=== PATIENT | male | born 1940 | race Caucasian/White ===

== ENCOUNTER 2024-10-20 20:23 | Inpatient (IN) | payer MEDICARE, OTHER, SELFPAY ==
[2024-10-20] VITALS (11 sets, daily range): BP systolic 113–162; BP diastolic 73–113; PULSE 88–100; RESP 24–26; TEMP 36.8; O2SAT 93–96; BMI 20.7
--- NOTE | 2024-10-20 20:40 | ED.MALEGU ---
HPI - Male Genitourinary General Chief complaint: Urogenital-Male Stated complaint: ruptured urethra; transfer from [facility] Time Seen by Provider: 10/20/24 20:27 Source: patient and EMS History of Present Illness HPI Narrative: 84-year-old male with past medical history of CAD CHF comes into the ED as transfer from [place] for anterior urethral traumatic rupture and bilateral multifocal pneumonia. Patient initially presented to outside hospital for persistent shortness of breath and generalized malaise with decreased urinary output. While he was there he was found to have urinary retention it was informed to me that they attempted to place a March in caused a traumatic rupture transferred here for urological intervention. Patient was found to have pneumonia there was given antibiotics but given the fact that patient required urological intervention was transferred here. Patient not complaining of any other symptoms, however patient is requiring 2 L supplemental oxygen without any respiratory distress or dyspnea Related Data Previous Rx's Medication Instructions Recorded sildenafil 50 mg tablet 50 mg PO DAILY PRN sexual activity 08/20/24 #20 tabs tamsulosin 0.4 mg capsule 0.4 mg PO DAILY #90 caps 08/20/24 Allergies Allergy/AdvReac Type Severity Reaction Status Date / Time No Known Drug Allergies Allergy Verified 10/20/24 20:27 Review of Systems Review of Systems Narrative: General: Denies fever, chills, weight loss HEENT: Denies headache, eye drainage, eye irritation, head trauma, sore throat, voice change Cardiovascular: Denies any chest pain, palpitations, tachycardia Respiratory: Positive shortness of breath, denies cough, wheeze, stridor GI/: Traumatic injury to urethra Denies any abdominal pain, nausea, vomiting, diarrhea, bright red blood per rectum, melanotic stools, urinary frequency, urinary retention, dysuria, hematuria MSK: Denies any joint pain, muscle pains, swelling Skin: Denies any rashes, lesions, discoloration Neuro: Denies any headache, lightheadedness, dizziness, fainting, weakness Psych: Denies SI/HI Patient History Medical History (Updated 10/20/24 @ 20:50 by Ludwin Schreiber DO) Incomplete bladder emptying Family history of prostate cancer Hypertension Congestive heart failure Arthritis Family history of prostate cancer Urinary calculi Male erectile disorder BPH loc w urin obs/LUTS Surgical History H/O vasectomy H/O prostate biopsy Total knee replacement status H/O transurethral resection of prostate History of hernia surgery Social History marital status: number of children: 3 Smoking Status: Former smoker Smoking Status: Former smoker Exam Narrative Exam Narrative: General: Cooperative, well-developed, not in acute distress HEENT: Normocephalic, atraumatic, PERRLA, normal sclera, eyelids normal Neck: Active full range of motion, atraumatic Chest: Normal to inspection, negative crepitus, no overlying erythema ecchymosis Respiratory: Onto L nasal cannula, Normal respiratory effort, not in acute respiratory distress, clear to auscultation bilaterally negative cough, wheeze, tachypnea, rhonchi, rales Cardiology: Regular rate rhythm negative gallop, murmur, rubs GI/: No tenderness to palpation, soft, non rigid, normal to inspection, exam deferred MSK: Full active range of motion in all 4 extremities, atraumatic, no tenderness to palpation of any bony prominences Skin: No rashes or lesions noted Neuro: Alert awake oriented x3, moves all 4 extremities spontaneously, cranial nerves intact, able to answer all questions appropriately follows commands appropriately Psych: Cooperative, negative suicidal or homicidal ideations Initial Vital Signs Initial Vital Signs: Vital Signs Temperature 98.2 F 10/20/24 20:27 Pulse Rate 93 H 10/20/24 20:27 Respiratory Rate 24 10/20/24 20:27 Blood Pressure 158/113 H 10/20/24 20:27 Pulse Oximetry 94 10/20/24 20:27 Oxygen Delivery Method Nasal Cannula 10/20/24 20:27 Oxygen Flow Rate 2 10/20/24 20:27 Course Orders Ordered: ED Orders 10/20/24 20:42 CBC Auto Diff [Complete Blood Count AUTO DIFF] Stat CMP [Comprehensive Metabolic Panel] Stat Lipase Stat MAG [Magnesium] Stat PT [Prothrombin Time INR] Stat PTT Partial Thromboplastin Matthew Stat Type and Screen Stat 10/20/24 21:30 UA dip [Urinalysis Screen (Dip Only)] Stat Urine Microscopic Stat Discontinued Medications Lidocaine HCl (Lidocaine 2% (Glydo) 6 Ml Gel) 6 ml TOP NOW ONE Stop: 10/20/24 20:49 Last Admin: 10/20/24 20:52 Dose: 6 ml Documented By: SB Vital Signs Vital signs: Vital Signs - 8 hr 10/20/24 20:27 Temperature 98.2 F Pulse Rate 93 H Respiratory Rate 24 Blood Pressure 158/113 H Pulse Oximetry 94 Oxygen Delivery Method Nasal Cannula Oxygen Flow Rate 2 MDM - Male Genitourinary Differential Diagnosis Differential diagnosis: Likely other (Urethral rupture, pneumonia, electrolyte abnormality) Lab Data 10/20/24 20:42 10/20/24 20:42 Labs: Lab Results 10/20/24 10/20/24 Range/Units 20:42 21:30 WBC 9.9 (4.5-11.0) X10^3/uL RBC 4.78 (4.5-5.9) X10^6/uL Hgb 14.1 (13.5-17.5) g/dL Hct 41.5 (41-53) % MCV 86.8 (80-100) fL MCH 29.5 (26-34) PG MCHC 34.0 (30-36) % RDW 13.5 (11.6-14.8) % Plt Count 354 (150-400) X10^3/uL Neut % (Auto) 70.7 (50-75) % Lymph % (Auto) 13.2 L (25-40) % [place] % (Auto) 11.1 (3-14) % Eos % (Auto) 4.4 H (2-4) % Baso % (Auto) 0.6 (0-2) % Neut # (Auto) 7000 (7074-7642) /uL Lymph # (Auto) 1300 (2370-4371) /uL [place] # (Auto) 1100 H (0-900) /uL Eos # (Auto) 400 (0-450) /uL Baso # (Auto) 100 (0-100) /uL PT 13.8 H (9.4-12.5) SECONDS INR 1.2 (0.9-1.3) APTT 32 (25.1-36.5) SECONDS Sodium 136 L (137-145) mmol/L Potassium 4.2 (3.4-5.1) mmol/L Chloride 104 (98-107) mmol/L Carbon Dioxide 23 (22-32) mmol/L BUN 15 (9-20) mg/dL Creatinine 0.87 (0.66-1.25) mg/dL Estimated GFR > 60 (>60) mL/min BUN/Creatinine Ratio 17.2 (6-22) Glucose 109 H (70-99) mg/dL Calcium 8.4 (8.4-10.2) mg/dL Magnesium 2.0 (1.6-2.3) mg/dL Total Bilirubin 0.9 (0.2-1.3) mg/dL AST 33 (17-59) IU/L ALT 24 (<50) IU/L Alkaline Phosphatase 67 (38-126) U/L Total Protein 6.6 (6.3-8.2) g/dL Albumin 3.6 (3.5-5.0) g/dL Globulin 3.0 (1.7-4.1) g/dL Albumin/Globulin Ratio 1.2 (1.0-2.8) Lipase 181 (23-300) U/L Urine Color Yellow Urine Appearance Clear Urine pH 6.5 (4.5-8.0) Ur Specific [place] <=1.005 (1.000-1.035) Urine Protein Negative (Negative) Urine Glucose (UA) Negative (Negative) g/dL Urine Ketones Negative (NEGATIVE) Urine Occult Blood 3+ H (Negative) Urine Nitrate Negative (Negative) Urine Bilirubin Negative (NEGATIVE) Urine Urobilinogen 0.2 (0.2) E.U./dL Ur Leukocyte Esterase Negative (NEGATIVE) Urine RBC 5-10/hpf H (0-5/HPF) Urine WBC 0-1/hpf (0-5/HPF) Ur Squamous Epith Cells None seen (0-5/HPF) Ur Transition Epith Cell 0-1/hpf (0-5/HPF) Ur Renal Epithelial Cell 1-5/hpf H (0-1/HPF) Urine Bacteria None seen (None) Ur Culture Indicated? Cult not indicated Vol Urine Centrifuged 10ml (spun) Blood Type A Positive Antibody Screen Negative MDM Narrative Medical decision making narrative: 84-year-old male with past medical history of CABG, CHF, hypertension presents from transfer from [facility] for known urethral traumatic injury. From outside hospital patient initially presented stating decreased urinary output today with generalized malaise. According to the patient they attempted to place a March for his urinary retention and had blood and stated that they caused traumatic injury that require transfer. In addition to this He had been seen multiple times at the outside hospital for shortness of breath cough was being treated for pneumonia versus CHF, patient was given diuresis last Saturday but stopped due to the inability to urinate patient was found to have extra have on CT urethrogram and transferred here for urological intervention, patient does have multifocal pneumonia on chest x-ray therefore will require admission to the hospital pending intervention of Urology Review of records show that patient did have outside hospital urethral cystogram that showed traumatic injury to the proximal anterior urethra with extra half of contrast into the penile soft tissue and venous structure, Outside hospital also showing chest x-ray with patchy airspace throughout the lungs consistent with pneumonia 2039: Dr. Reyes of Urology at bedside to perform procedure 2199: Successful placement of March catheter by Dr. Reyes, states they will follow up with him in the morning The patient's management plan was discussed Dr. De Los Santos, who agrees to admit the patient to their service and assumes care of this patient at this time. Full admission orders will be placed by the primary team. Discharge Plan Departure Patient Disposition: Admitted As Inpatient Clinical Impression: Pneumonia, Traumatic rupture of male urethra Prescriptions: No Action sildenafil 50 mg tablet 50 mg PO DAILY PRN (Reason: sexual activity) Qty: 20 3RF Rx Instructions: administer 30 minutes to 4 hours before activity. take 1 to 2 tabs as needed. tamsulosin 0.4 mg capsule 0.4 mg PO DAILY Qty: 90 3RF Referrals: Gato Franz MD [Primary Care Provider] -
[2024-10-20] MEDS: LIDOCAINE 2% (GLYDO) 6 ML GEL TOP (20:52)
[2024-10-20 21:27] LABS: Add Manual Diff / Slide Review NO; Basophils Absolute Auto 100 /uL (0-100); Basophils Percent Auto 0.6 % (0-2); Eosinophils Absolute Auto 400 /uL (0-450); Eosinophils Percent Auto 4.4 % (2-4); Hematocrit 41.5 % (41-53); Hemoglobin 14.1 g/dL (13.5-17.5); INR 1.2 (0.9-1.3); Lymphocytes Absolute Auto 1300 /uL (1100-4500); Lymphocytes Percent Auto 13.2 % (25-40); Mean Corpuscular Hemoglobin 29.5 PG (26-34); Mean Corpuscular Volume 86.8 fL (80-100); Monocytes Absolute Auto 1100 /uL (0-900); Monocytes Percent Auto 11.1 % (3-14); Neutrophils Absolute Auto 7000 /uL (1500-7000); Neutrophils Percent Auto 70.7 % (50-75); Platelet Count 354 X10^3/uL (150-400); Prothrombin Time 13.8 SECONDS (9.4-12.5); Red Blood Cell Count 4.78 X10^6/uL (4.5-5.9); Red Cell Distribution Width 13.5 % (11.6-14.8); White Blood Cell Count 9.9 X10^3/uL (4.5-11.0)
--- NOTE | 2024-10-20 21:27 | PM.PROC.IH ---
Procedures Date/Time Date of procedure: 10/20/24 Time of procedure: 21:28 General Procedure description: Flexible cystoscopy with over the wire catheter placement: Informed consent given: Yes Consent signed: Yes Procedure Notes: Flexible cystoscopy with over the wire catheter placement note: Procedure performed: Flexible cystoscopy Surgeon: Bennett Reyes MD Anesthetic: 2% viscous lidocaine per urethra. Prep: Hibiclens prep Preoperative diagnosis: Urethral false passage, history of traumatic catheterization, inability to pass catheter, patient unable to void Postoperative diagnosis: Same plus posterior false passage bulbar urethra some regrowth of prostate tissue. Complications: None Procedure in detail: After informed consent was obtained, the patient was identified and and was on his gurney in emergency room 2 Patient was then placed in a modified supine position on the table due to his congestive heart failure and shortness of breath. He was prepped with a sterilizing prep (Hibiclens) and draped in sterile fashion for flexible cystoscopy. 2% viscous lidocaine was instilled in the urethra and time allowed for the block set up. Flexible cystoscope was inserted in flexible cystoscopy performed including a retroflex maneuver. With the cystoscope in place an Amplatz ultra stiff guidewire was then passed through the scope and coiled within the bladder. The scope was then backed out leaving the wire in place. A Councill tip catheter 18 Maltese was then passed over the wire and into the bladder once there the balloon was filled with 10 cc of sterile water. The wire was then removed the catheter left in place and placed to gravity drainage there were no complications in the patient tolerated the procedure well the result was clear yellow urine in the 6-900 cc range. Disposition: The patient we will go onto the care of the hospitalist to deal with his cardiopulmonary issues. Findings: Urethral meatus was bloody there was blood on the the penis which was cleansed. The urethra was normal to the bulbar urethra where there was a posterior false passage that appeared relatively shallow. Prostate appeared resected with some small amount of regrowth. The bladder exhibited moderate trabeculation ureteral orifices were not observed there were no masses or other abnormalities within the bladder. The 18 Maltese Councill tip catheter was left in place with 10 cc of sterile water in the balloon. Li color urine was then drained and again a quantity somewhere between 600 and 900 cc. Impression: Traumatic catheterization posterior false passage catheter is in place and should remain so. Plan: Given the trauma to the urethra the catheter should likely remain in place 7-10 days I will leave this determination Dr. Platt who will likely see the patient tomorrow patient will go onto the care of the hospitalist to deal with his cardiopulmonary issues. 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
[2024-10-20 21:30] LABS: PTT Partial Thromboplastin Tim 32 SECONDS (25.1-36.5)
[2024-10-20 21:37] LABS: Alanine Aminotransferase 24 IU/L (<50); Albumin 3.6 g/dL (3.5-5.0); Albumin Globulin Ratio 1.2 (1.0-2.8); Alkaline Phosphatase 67 U/L (38-126); Aspartate Aminotransferase 33 IU/L (17-59); BUN Creatinine Ratio 17.2 (6-22); Bilirubin Total 0.9 mg/dL (0.2-1.3); Blood Urea Nitrogen 15 mg/dL (9-20); Calcium 8.4 mg/dL (8.4-10.2); Carbon Dioxide 23 mmol/L (22-32); Chloride 104 mmol/L (98-107); Estimated Glomerular Filt Rate > 60 mL/min (>60); Glucose 109 mg/dL (70-99); HEMOLYSIS < 15 (0-50); Lipase 181 U/L (23-300); Potassium 4.2 mmol/L (3.4-5.1); Sodium 136 mmol/L (137-145); Total Protein 6.6 g/dL (6.3-8.2)
--- NOTE | 2024-10-20 21:39 | PM.CN.IH.1 ---
History of Present Illness Consult details Date Patient Seen: 10/20/24 Chief complaint: ruptured urethra; transfer from [facility] Reason for consult: Traumatic catheterization, urethral trauma, unable to void, Requesting provider: Ludwin Navarro Narrative: This 84-year-old male presented to the [facility] with complaints of shortness of breath and was found to be in cardiopulmonary distress and according to reports I had it was felt that he needed diuresis an attempt was made to pass a March catheter which were ultra salted in non passage of the catheter urethral trauma and a false passage documented by retrograde urethrogam. They did not have Urology there and patient needs diuresis and cardiopulmonary care therefore he was transferred here. Patient is a patient of Dr. Platt. Patient is here for catheterization and care of his cardiopulmonary issues. Patient does have a history of Transurethral resection of the prostate in the distant past I believe 2014 the patient reports that he had perhaps some slowing of his stream had been restarted on tamsulosin and was doing well. Patient has by his report no history of stricture or other urethral abnormality. Patient underwent cystoscopy with over the wire catheter placement this is dictated under separate cover. Meds Home Medications and Allergies Home Medications Medication Instructions Recorded Confirmed Type sildenafil 50 mg tablet 50 mg PO DAILY PRN sexual activity 08/20/24 08/20/24 Rx #20 tabs tamsulosin 0.4 mg capsule 0.4 mg PO DAILY #90 caps 08/20/24 08/20/24 Rx Allergies Allergy/AdvReac Type Severity Reaction Status Date / Time No Known Drug Allergies Allergy Verified 10/20/24 20:27 Exam Vital Signs (past 8 hours): - 10/20/24 20:27 Temperature 98.2 F Pulse Rate 93 H Respiratory Rate 24 Blood Pressure 158/113 H Pulse Oximetry 94 Oxygen Delivery Method Nasal Cannula Oxygen Flow Rate 2 Oxygen Delivery Method Nasal Cannula Oxygen Flow Rate 2 Objective Labs 10/20/24 20:42 10/20/24 20:42 Labs: Laboratory Results - last 24 hr 10/20/24 20:42 WBC 9.9 RBC 4.78 Hgb 14.1 Hct 41.5 MCV 86.8 MCH 29.5 MCHC 34.0 RDW 13.5 Plt Count 354 Neut % (Auto) 70.7 Lymph % (Auto) 13.2 L Gaines % (Auto) 11.1 Eos % (Auto) 4.4 H Baso % (Auto) 0.6 Neut # (Auto) 7000 Lymph # (Auto) 1300 Gaines # (Auto) 1100 H Eos # (Auto) 400 Baso # (Auto) 100 PT 13.8 H INR 1.2 APTT 32 Sodium 136 L Potassium 4.2 Chloride 104 Carbon Dioxide 23 BUN 15 Creatinine 0.87 Estimated GFR > 60 BUN/Creatinine Ratio 17.2 Glucose 109 H Calcium 8.4 Magnesium 2.0 Total Bilirubin 0.9 AST 33 ALT 24 Alkaline Phosphatase 67 Total Protein 6.6 Albumin 3.6 Globulin 3.0 Albumin/Globulin Ratio 1.2 Lipase 181 [facility] Medical History (Updated 10/20/24 @ 20:50 by Ludwin Schreiber DO) Incomplete bladder emptying Family history of prostate cancer Hypertension Congestive heart failure Arthritis Family history of prostate cancer Urinary calculi Male erectile disorder BPH loc w urin obs/LUTS Surgical History H/O vasectomy H/O prostate biopsy Total knee replacement status H/O transurethral resection of prostate History of hernia surgery Social History marital status: number of children: 3 Tobacco & Substance Use Smoking Status: Former smoker Assessment & Plan Assessment & Plan narrative: Assessment and plan: Traumatic catheterization resulting in false passage and inability to pass a catheter. Patient is to undergo cystoscopy with over the wire catheter placement this is dictated under separate cover. Patient is to go onto the care of the hospitalist to address his cardiopulmonary issues. Patient did well with the cystoscopy and catheter was placed without difficulty draining nazario color urine. The catheter should remain in place likely 7-10 days and should not be removed without consulting Dr. Platt. Dr. Platt we will be notified and will discuss plans with the patient tomorrow. Time-Based Coding :: [TOTAL MINUTES] spent with patient and on the chart (including review of chart, obtaining history, exam, reviewing outside data, placing orders, documenting exam and treatment plan, and counseling patient) on [DATE]. Total time with the patient counseling performing procedure in the emergency department 1 hour and 15 minutes. PROFEE Charge Codes Inpatient or Observation consultation: [id number] (1 hour and 15 minutes including procedure)
[2024-10-20 21:50] LABS: Appearance Urine UA CLEAR; Bilirubin Urine UA NEGATIVE (NEGATIVE); Color Urine UA YELLOW; Glucose Urine UA NEGATIVE (Negative); Ketones Urine UA NEGATIVE (NEGATIVE); Leukocyte Esterase Urine UA NEGATIVE (NEGATIVE); Nitrite Urine UA NEGATIVE (Negative); Occult Blood Urine UA 3+ (Negative); Protein Urine UA NEGATIVE (Negative); Specific Gravity Urine UA <=1.005 (1.000-1.035); Urobilinogen Urine UA 0.2 E.U./dL (0.2); pH Urine UA 6.5 (4.5-8.0)
--- NOTE | 2024-10-20 21:50 | PC.NURSE ---
2120: This RN, and RN Karla Steel at bedside while provider Eric performs bedside procedure to place March catheter via cystoscopy. Pt tolerates procedure well.
[2024-10-20 21:59] LABS: Bacteria Urine None Seen; RBC Urine 5-10/HPF (0-5/HPF); Renal Epithelial Cells Urine 1-5/HPF (0-1/HPF); Squamous Epithelial Cell Urine None Seen (0-5/HPF); Transitional Epi Cells Urine 0-1/HPF (0-5/HPF); Urine Volume 10mL (spun); WBC Urine 0-1/HPF (0-5/HPF)
[2024-10-20 22:00] LABS: Culture Indicated Urine Cult Not Indicated
[2024-10-21] VITALS (8 sets, daily range): BP systolic 120–143; BP diastolic 77–95; PULSE 66–102; RESP 14–20; TEMP 36.3–36.8; O2SAT 92–96; BMI 20.7
--- NOTE | 2024-10-21 00:26 | PC.NURSE ---
Patient admitted to AC unit at 00:03. Alert and oriented x 4, pleasant. Stand pivot to bed. March catheter patent, noted mackenzie blood from catheter sight and very tender to that area. 2L O2 on nasal cannula.
--- NOTE | 2024-10-21 02:14 | P.HP_ITS ---
History of Present Illness History of Present Illness Date Patient Seen: 10/21/24 Time Patient Seen: 01:00 Chief complaint: ruptured urethra; transfer from [facility] Narrative: 84 y/o with PMH of CAD, s/p CABG, BPH with LUTS, s/p prostatectomy, transferred from hospital in [place] for anterior urethral traumatic rupture and bilateral multifocal pneumonia. Patient initially presented to outside hospital for persistent shortness of breath and generalized malaise with decreased urinary output. He was treated with antibiotic for PNA and diuretic for CHF, transferred to [facility] due to lack of urology coverage. In the ED seen by urologist, had cystoscopic catheter placement. On 2 L of oxygen. Complains on cough, shortness of breath. Initial workup unremarkable. [facility] Medical History (Updated 10/21/24 @ 02:32 by Justice De Los Santos MD) CAD (coronary artery disease) Incomplete bladder emptying Family history of prostate cancer Hypertension Congestive heart failure Arthritis Family history of prostate cancer Urinary calculi Male erectile disorder BPH loc w urin obs/LUTS Surgical History H/O vasectomy H/O prostate biopsy Total knee replacement status H/O transurethral resection of prostate History of hernia surgery Social History marital status: number of children: 3 household members: none Smoking Status: Former smoker Meds Home Medications and Allergies Home Medications Medication Instructions Recorded Confirmed Type sildenafil 50 mg tablet 50 mg PO DAILY PRN sexual activity 08/20/24 10/21/24 Rx #20 tabs tamsulosin 0.4 mg capsule 0.4 mg PO DAILY #90 caps 08/20/24 08/20/24 Rx Allergies Allergy/AdvReac Type Severity Reaction Status Date / Time No Known Drug Allergies Allergy Verified 10/20/24 20:27 Review of Systems Review of Systems Narrative: General - malaise, generalized weakness, w/o fever or chills RS - short of breath, cough CVS - w/o chest pain or pressure, w/o palpitations GI - w/o bloody stool, w/o heartburn Urologic - weak stream, recently restarted Flomax, followed by urology Exam Vital Signs (past 8 hours): - 10/20/24 20:27 10/20/24 20:33 10/20/24 21:00 Temperature 98.2 F Pulse Rate 93 H 99 H 92 H Respiratory Rate 24 Blood Pressure 158/113 H Pulse Oximetry 94 94 93 Oxygen Delivery Method Nasal Cannula Oxygen Flow Rate 2 10/20/24 21:06 10/20/24 21:06 10/20/24 21:22 Temperature Pulse Rate 91 H Respiratory Rate Blood Pressure 137/101 H 153/108 H Pulse Oximetry 95 Oxygen Delivery Method Oxygen Flow Rate 10/20/24 21:22 10/20/24 21:30 10/20/24 21:30 Temperature Pulse Rate 93 H 93 H Respiratory Rate Blood Pressure 150/83 H Pulse Oximetry 96 95 Oxygen Delivery Method Oxygen Flow Rate 10/20/24 21:31 10/20/24 21:31 10/20/24 22:00 Temperature Pulse Rate 93 H 88 Respiratory Rate Blood Pressure 144/85 H Pulse Oximetry 95 93 Oxygen Delivery Method Nasal Cannula Oxygen Flow Rate 2 10/20/24 22:00 10/20/24 22:30 10/20/24 22:30 Temperature Pulse Rate 100 H Respiratory Rate 24 Blood Pressure 126/96 H 162/102 H Pulse Oximetry 95 Oxygen Delivery Method Oxygen Flow Rate 10/20/24 22:59 10/20/24 23:00 10/20/24 23:00 Temperature Pulse Rate 100 H Respiratory Rate Blood Pressure 134/100 H Pulse Oximetry 95 Oxygen Delivery Method Nasal Cannula Nasal Cannula Oxygen Flow Rate 2 10/20/24 23:30 10/20/24 23:30 10/21/24 00:24 Temperature 98.1 F Pulse Rate 96 H 100 H Respiratory Rate 26 H 16 Blood Pressure 113/73 130/94 H Pulse Oximetry 93 95 Oxygen Delivery Method Nasal Cannula Oxygen Flow Rate 0 Oxygen Delivery Method Nasal Cannula Oxygen Flow Rate 0 Narrative Exam Narrative: General - in no distress HEENT - normocephalic, O2 via NC RS - b/l rhonchi, not wheezy CVS - RRR, 1 + b/l leg edema, w/o JVD GI - not distended Neuro - lucid, w/o deficits Skin - w/o rashes Objective ECG Impression: Pending Imaging Chest x-ray: My impression: Pending Labs 10/20/24 20:42 10/20/24 20:42 Labs: Laboratory Results - last 24 hr 10/20/24 10/20/24 20:42 21:30 WBC 9.9 RBC 4.78 Hgb 14.1 Hct 41.5 MCV 86.8 MCH 29.5 MCHC 34.0 RDW 13.5 Plt Count 354 Neut % (Auto) 70.7 Lymph % (Auto) 13.2 L [place] % (Auto) 11.1 Eos % (Auto) 4.4 H Baso % (Auto) 0.6 Neut # (Auto) 7000 Lymph # (Auto) 1300 [place] # (Auto) 1100 H Eos # (Auto) 400 Baso # (Auto) 100 PT 13.8 H INR 1.2 APTT 32 Sodium 136 L Potassium 4.2 Chloride 104 Carbon Dioxide 23 BUN 15 Creatinine 0.87 Estimated GFR > 60 BUN/Creatinine Ratio 17.2 Glucose 109 H Calcium 8.4 Magnesium 2.0 Total Bilirubin 0.9 AST 33 ALT 24 Alkaline Phosphatase 67 Total Protein 6.6 Albumin 3.6 Globulin 3.0 Albumin/Globulin Ratio 1.2 Lipase 181 Urine Color Yellow Urine Appearance Clear Urine pH 6.5 Ur Specific [place] <=1.005 Urine Protein Negative Urine Glucose (UA) Negative Urine Ketones Negative Urine Occult Blood 3+ H Urine Nitrate Negative Urine Bilirubin Negative Urine Urobilinogen 0.2 Ur Leukocyte Esterase Negative Urine RBC 5-10/hpf H Urine WBC 0-1/hpf Ur Squamous Epith Cells None seen Ur Transition Epith Cell 0-1/hpf Ur Renal Epithelial Cell 1-5/hpf H Urine Bacteria None seen Ur Culture Indicated? Cult not indicated Vol Urine Centrifuged 10ml (spun) Blood Type A Positive Antibody Screen Negative Assessment & Plan Assessment and plan (1) Pneumonia: Qualifiers: Pneumonia type: due to unspecified organism Laterality: bilateral Lung location: unspecified part of lung Qualified Code(s): J18.9 - Pneumonia, unspecified organism Status: Acute (2) Traumatic rupture of male urethra: Qualifiers: Encounter type: initial encounter Qualified Code(s): S37.39XA - Other injury of urethra, initial encounter Status: Acute (3) BPH loc w urin obs/LUTS: Status: Acute (4) Hypertension: Qualifiers: Hypertension type: primary hypertension Qualified Code(s): I10 - Essential (primary) hypertension Status: Acute (5) CAD (coronary artery disease): Qualifiers: Coronary Disease-Associated Artery/Lesion type: bypass graft [place] vs. transplanted heart: [place] heart Associated angina: without angina Qualified Code(s): I25.810 - Atherosclerosis of coronary artery bypass graft(s) without angina pectoris Status: Acute Assessment & Plan narrative: Pneumonia / Acute Hypoxemic Respiratory Failure - Rocephin, not septic - wean off oxygen - Robitussin - CXR in AM CAD / HTN / CHF? - diuresed for CHF in outside hospital - had 2 bypass surgeries, second CABG x 3 - does not take statin, aspirin (caused GI bleed in the past), antihypertensive (apparently he was on combination of HCTZ with ARB? that gave him headaches), sometimes using NTG SL for angina, not lately - EKG pending - BNP pending - prn NTG, telemetry monitoring, follow up with primary human resources director BPH with LUTS / Hx of TURP / Acute Urinary Retention / Traumatic Urethral Rupture - catheter to be left in place for at least 7 days and until seen by primary urologist - resolving hematuria DVT prophylaxis - SCDs Patient consented to a real time, audio-video telemedicine visit with electronic stethoscope and RN assisting during the exam. Patient located at [place], [place]. Provider located in [place]. Time-Based Coding :: [TOTAL MINUTES] spent with patient and on the chart (including review of chart, obtaining history, exam, reviewing outside data, placing orders, documenting exam and treatment plan, and counseling patient) on [DATE]. Quality VTE Deep Vein Thrombosis/Pulmonary Embolism Present on Admission: No
[2024-10-21] MEDS: ACETAMINOPHEN 325 MG TABLET 975 MG PO (02:35)
[2024-10-21] MEDS: guaiFENesin Solution 100 MG/5 ML UDC 200 MG PO ×2 (02:36→22:12)
[2024-10-21 04:56] LABS: Add Manual Diff / Slide Review NO; Basophils Absolute Auto 100 /uL (0-100); Basophils Percent Auto 0.6 % (0-2); Eosinophils Absolute Auto 400 /uL (0-450); Eosinophils Percent Auto 4.9 % (2-4); Hematocrit 38.6 % (41-53); Hemoglobin 12.9 g/dL (13.5-17.5); Lymphocytes Absolute Auto 1100 /uL (1100-4500); Lymphocytes Percent Auto 13.4 % (25-40); Mean Corpuscular HGB Conc 33.5 % (30-36); Mean Corpuscular Volume 86.6 fL (80-100); Monocytes Absolute Auto 900 /uL (0-900); Monocytes Percent Auto 10.8 % (3-14); Neutrophils Absolute Auto 5900 /uL (1500-7000); Neutrophils Percent Auto 70.3 % (50-75); Platelet Count 313 X10^3/uL (150-400); Red Blood Cell Count 4.46 X10^6/uL (4.5-5.9); Red Cell Distribution Width 13.3 % (11.6-14.8); White Blood Cell Count 8.3 X10^3/uL (4.5-11.0)
[2024-10-21 05:17] LABS: BUN Creatinine Ratio 19.1 (6-22); Blood Urea Nitrogen 17 mg/dL (9-20); Calcium 8.1 mg/dL (8.4-10.2); Carbon Dioxide 23 mmol/L (22-32); Chloride 105 mmol/L (98-107); Estimated Glomerular Filt Rate > 60 mL/min (>60); Glucose 88 mg/dL (70-99); HEMOLYSIS < 15 (0-50); Potassium 3.7 mmol/L (3.4-5.1); Sodium 134 mmol/L (137-145)
--- NOTE | 2024-10-21 05:28 | PC.RNWOUND ---
Scratches to BLE's
[2024-10-21 05:47] LABS: NT-proBNP (BNP-Adult 18+) 13500 pg/mL (<450)
--- NOTE | 2024-10-21 07:40 | DI.ECHO.S_ITS ---
[place] +---------+ Hospital : : [address] : : [place] : : [id number] : : Phone: [phone] Echocardiogram Report + + :Name: KOKO BARAJAS Study Date: 10/21/2024 Height: 70 in : :Hospital ReadingLocation: Weight: 146 lb : : Gender: Male BSA: 1.8 m2 : :: 1940 Age: 84 yrs BP: 138/95 mmHg: :Reason For Study: SHORTNESS OF BREATH : :Ordering Physician: BRITNI, : :MJ BRYANT Performed By: Trang Sanchez : :Referring: MJ RYDER : + + Interpretation Summary Severely dilated LV with severely reduced LV systolic function. LVEF is 15%. Moderate mitral regurgitation. LA appears mildly dilated. Mild aortic stenosis. More severe aortic stenosis cannot be ruled out. RV is mildly dilated with systolic function seems largely preserved. Pulmonary hypertension could not be assessed. Other findings as below. When compared to TTE dated 11/04/2014, LV systolic function is dramatically decreased. Procedure: A two-dimensional transthoracic echocardiogram with color flow and Doppler was performed. The study quality was technically adequate. Comparison is made with the echocardiogram of 11/04/2014. A contrast injection of Definity was performed to improve assessment for apical thrombus. The heart rate ranged between 72-86 bpm during the study. Left Ventricle: The left ventricle is severely dilated. The estimated left ventricular end diastolic volume is 228 ml. Left ventricular volume indexed to BSA of 124. Left ventricle internal dimension diastole indexed to BSA of 3.5cm/m2. There is normal left ventricular wall thickness. There is no thrombus. A false chord is noted (normal variant). The ejection fraction is estimated to be 15-20%. Right Ventricle: The right ventricle is at the upper limits of normal in size. The right ventricular systolic function is normal. Atria: The left atrium is mildly dilated. Right atrial size is normal. There is no Doppler evidence for an interatrial shunt. Mitral Valve: An annuloplasty ring is noted in the mitral position. The mitral valve mean gradient is 5.0 mmHg. There is mild to moderate mitral regurgitation. Aortic Valve: The aortic valve is trileaflet. There is mild aortic valve sclerosis. There is moderately reduced leaflet mobility. There is discrete nodular thickening of the non- coronary cusp. The peak aortic velocity is 1.8 m/sec. The aortic valve mean gradient is 7.8 mmHg. The calculated aortic valve area is 1.6 cm2. No aortic regurgitation is present. Tricuspid Valve: Tricuspid leaflets are thickened. There is mild tricuspid regurgitation. Pulmonary artery pressures cannot be estimated because of the lack of a measurable TR jet velocity. Pulmonic Valve: The pulmonic valve is not well seen, but is grossly normal. There is a trace or physiologic amount of pulmonic regurgitation. Great Vessels: The aortic root is borderline dilated. The ascending aorta could not be visualized. The aortic arch is mildly enlarged. The inferior vena cava was not visualized. Pericardium/ Pleura There is no pericardial effusion. MMode/2D Measurements & Calculations LVIDd: 6.3 cm LVOT diam: 2.2 cm LVIDs: 5.9 cm Ao root diam: 4.1 cm FS: 5.9 % Ao Arch Diam (Prox Trans): 3.9 cm EPSS: 2.5 cm IVSd: 0.80 cm LVPWd: 0.88 cm LV castro. diameter/BSA (cm/m^2): 3.5 LV sys. diameter/BSA (cm/m^2): 3.3 LA A2 area: 21.6 cm2 RA long axis: 5.7 cm LA A4 area: 22.6 cm2 RA area: 19.3 cm2 LA length (vol): 5.9 cm RA vol: 55.7 ml LA vol: 70.1 ml RA : 30.5 ml/m2 LA vol index: 38.4 ml/m2 RVD1 (basal): 4.0 cm RVD2 (mid): 2.7 cm TAPSE: 1.8 cm Doppler Measurements & Calculations Ao V2 max: 182.5 cm/sec LVOT Max Vlad: 73.3 cm/sec Ao V2 mean: 120.6 cm/sec LV V1 max P.2 mmHg Ao max P.7 mmHg LV V1 VTI: 11.2 cm Ao mean P.8 mmHg JOSE(I,D): 1.7 cm2 Ao V2 VTI: 26.0 cm JOSE(V,D): 1.6 cm2 sev ratio: 0.43 JOSE indexed to BSA (cm^2/m^2): 0.94 MV E max vlad: 111.2 cm/sec PA V2 max: 67.7 cm/sec MV A max vlad: 95.0 cm/sec PA V2 mean: 43.2 cm/sec MV E/A: 1.2 PA mean P.89 mmHg MV dec time: 0.19 sec PA pr(Accel): 55.0 mmHg MVA(VTI): 1.5 cm2 MV V2 mean: 94.2 cm/sec SV(LVOT): 44.4 ml MV mean P.0 mmHg MV V2 VTI: 29.3 cm Reading Physician:01:49 PM
[2024-10-21] MEDS: cefTRIAXone 1,000 MG in SODIUM CHLORIDE 0.9% 100 ML 200 MG IV (07:51)
--- NOTE | 2024-10-21 08:13 | DI.RAD.S_ITS ---
PROCEDURE: XR CHEST 1V INDICATIONS: multifocal pneumonia follow up TECHNIQUE: One view of the chest was acquired. COMPARISON: None. FINDINGS: Surgical changes and devices: CABG postsurgical changes. Aortic valve prosthesis. Lungs and pleura: Focal opacity in the right upper lobe. Patchy opacities in left lung. No pleural effusions or pneumothorax. Mediastinum: Mediastinal contours appear normal. Heart is borderline enlarged. Bones and chest wall: No suspicious bony lesions. Overlying soft tissues appear unremarkable. IMPRESSION: Right upper lobe pneumonia. Multifocal left lung pneumonia. Dictated by: Gabby Cid MD, PhD on 10/21/2024 at 9:10 Approved by: Gabby Cid MD, PhD on 10/21/2024 at 9:17
[2024-10-21] MEDS: FUROSEMIDE 20 MG/2 ML VIAL IV ×2 (08:54→20:08)
[2024-10-21] MEDS: TAMSULOSIN 0.4 MG CAPSULE PO (08:54)
--- NOTE | 2024-10-21 09:21 | EKG_ITS ---
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
[2024-10-21] MEDS: polyethylene glycoL 3350 17 GM POWD.PACK PO (10:35)
[2024-10-21] MEDS: ACETAMINOPHEN 325 MG TABLET 650 MG PO ×2 (15:17→22:11)
--- NOTE | 2024-10-21 15:33 | PM.HP.1 ---
History of Present Illness History of Present Illness Date Patient Seen: 10/21/24 Time Patient Seen: 10:00 Chief complaint: ruptured urethra; transfer from [facility] Narrative: Per overnight provider, 84 y/o with PMH of CAD, s/p CABG, BPH with LUTS, s/p prostatectomy, transferred from hospital in [place] for anterior urethral traumatic rupture and bilateral multifocal pneumonia. Patient initially presented to outside hospital for persistent shortness of breath and generalized malaise with decreased urinary output. He was treated with antibiotic for PNA and diuretic for CHF, transferred to [facility] due to lack of urology coverage. In the ED seen by urologist, had cystoscopic catheter placement. On 2 L of oxygen. Complains on cough, shortness of breath. Initial workup unremarkable. Interval history: Urology placed gilbert, recommends to keep for at least 7 days, do not remove unless directed by urology. TTE today showed newly reduced EF at 15%. Patient has had shortness of breath and a cough now for about a week. Was initially seen at [facility] as this started, improved with lasix but then returned discharged on amoxicillin, then returned again for this admission currently. [facility] Medical History (Updated 10/21/24 @ 02:32 by Justice De Los Santos MD) CAD (coronary artery disease) Incomplete bladder emptying Family history of prostate cancer Hypertension Congestive heart failure Arthritis Family history of prostate cancer Urinary calculi Male erectile disorder BPH loc w urin obs/LUTS Surgical History H/O vasectomy H/O prostate biopsy Total knee replacement status H/O transurethral resection of prostate History of hernia surgery Social History marital status: number of children: 3 household members: none Smoking Status: Former smoker Meds Home Medications and Allergies Home Medications Medication Instructions Recorded Confirmed Type sildenafil 50 mg tablet 50 mg PO DAILY PRN sexual activity 08/20/24 10/21/24 Rx #20 tabs tamsulosin 0.4 mg capsule 0.4 mg PO DAILY #90 caps 08/20/24 10/21/24 Rx Allergies Allergy/AdvReac Type Severity Reaction Status Date / Time No Known Drug Allergies Allergy Verified 10/20/24 20:27 Review of Systems Review of Systems Narrative: All other systems reviewed with the patient and are negative unless otherwise stated. Exam Vital Signs (past 8 hours): - 10/21/24 08:00 10/21/24 08:00 10/21/24 08:59 Temperature 97.6 F Pulse Rate 90 Respiratory Rate Blood Pressure 138/95 H Pulse Oximetry 92 94 Oxygen Delivery Method Nasal Cannula Nasal Cannula Oxygen Flow Rate 2 2 Fraction of Inspired Oxygen 28 10/21/24 10:38 10/21/24 12:58 Temperature 98.3 F 97.4 F L Pulse Rate 74 102 H Respiratory Rate 14 Blood Pressure 126/92 H Pulse Oximetry 92 96 Oxygen Delivery Method Oxygen Flow Rate 2 0 Fraction of Inspired Oxygen Fraction of Inspired Oxygen 28 SaO2/FiO2 Ratio 335 Oxygen Delivery Method Nasal Cannula Oxygen Flow Rate 0 Narrative Exam Narrative: General - in no distress HEENT - normocephalic, O2 via NC RS - b/l rhonchi, not wheezy CVS - RRR, 1 + b/l leg edema, w/o JVD GI - not distended Neuro - lucid, w/o deficits Skin - w/o rashes Objective Labs 10/21/24 04:17 10/21/24 04:17 Labs: Laboratory Results - last 24 hr 10/20/24 10/20/24 10/21/24 20:42 21:30 04:17 WBC 9.9 8.3 RBC 4.78 4.46 L Hgb 14.1 12.9 L Hct 41.5 38.6 L MCV 86.8 86.6 MCH 29.5 29.0 MCHC 34.0 33.5 RDW 13.5 13.3 Plt Count 354 313 Neut % (Auto) 70.7 70.3 Lymph % (Auto) 13.2 L 13.4 L [place] % (Auto) 11.1 10.8 Eos % (Auto) 4.4 H 4.9 H Baso % (Auto) 0.6 0.6 Neut # (Auto) 7000 5900 Lymph # (Auto) 1300 1100 [place] # (Auto) 1100 H 900 Eos # (Auto) 400 400 Baso # (Auto) 100 100 PT 13.8 H INR 1.2 APTT 32 Sodium 136 L 134 L Potassium 4.2 3.7 Chloride 104 105 Carbon Dioxide 23 23 BUN 15 17 Creatinine 0.87 0.89 Estimated GFR > 60 > 60 BUN/Creatinine Ratio 17.2 19.1 Glucose 109 H 88 Calcium 8.4 8.1 L Magnesium 2.0 Total Bilirubin 0.9 AST 33 ALT 24 Alkaline Phosphatase 67 NT-Pro-B Natriuret Pep 64181 H Total Protein 6.6 Albumin 3.6 Globulin 3.0 Albumin/Globulin Ratio 1.2 Lipase 181 Urine Color Yellow Urine Appearance Clear Urine pH 6.5 Ur Specific [place] <=1.005 Urine Protein Negative Urine Glucose (UA) Negative Urine Ketones Negative Urine Occult Blood 3+ H Urine Nitrate Negative Urine Bilirubin Negative Urine Urobilinogen 0.2 Ur Leukocyte Esterase Negative Urine RBC 5-10/hpf H Urine WBC 0-1/hpf Ur Squamous Epith Cells None seen Ur Transition Epith Cell 0-1/hpf Ur Renal Epithelial Cell 1-5/hpf H Urine Bacteria None seen Ur Culture Indicated? Cult not indicated Vol Urine Centrifuged 10ml (spun) Blood Type A Positive Antibody Screen Negative Assessment & Plan Assessment & Plan narrative: Acute on chronic systolic heart failure, POA - TTE showing new EF of 15%. Previously 35-45% per prior notes. Discussed with labor relations analyst drug enforcement administration agent. Given mild dyspnea symptoms, no chest pain or elevated troponin. Recommends initiation of goal directed medical therapy, no need for transfer for further ischemic evaluation at this time. - start lisinopril, continue diuresis and then initiate beta naima. - diuresing with 20 mg IV BID, has gilbert for traumatic injury but will help with diuresis monitoring as well. - may or may not need diuresis on discharge. Possible bacterial pneumonia with Acute Hypoxemic Respiratory Failure - Rocephin x4 more days ordered, Has completed as an outpatient 3 days of azithro. Can transition to PO antibiotics if hypoxia resolves / discharged. - wean off oxygen as tolerated, goal 90-96% - Robitussin CAD with H/o CABG, h/o MV posterior leaflet repair w/ ring. - had 2 bypass surgeries, second CABG x 3 - does not take statin, aspirin (caused GI bleed in the past), antihypertensive (apparently he was on combination of HCTZ with ARB? that gave him headaches), sometimes using NTG SL for angina, not latel - restart statin, rediscuss asa. BPH with LUTS / Hx of TURP / Acute Urinary Retention / Traumatic Urethral Rupture - catheter to be left in place for at least 7 days and until seen by primary urologist as an outpatient - resolving hematuria - continue gilbert DVT prophylaxis - SCDs for now given traumatic urethral injury, can likely restart in a day or two Code: Full, surrogate is patien Code: Full, surrogate is patient's daughter. I have utilized all available immediate resources to obtain, update, or review the patient's current medications. Additional history obtained via discussions with the ER provider at [facility] prior to admission, overnight telehospitalist provider. These discussions contributed to the creation of the above assessment and plan. I have reviewed patient's presenting documentation, labs, and imaging personally. Dispo: inpatient, anticipate discharge in another 1-2 days once hypoxia resolves and able to initiate appropriate goal directed medical therapy for CHFrEF. Time-Based Coding :: [TOTAL MINUTES] spent with patient and on the chart (including review of chart, obtaining history, exam, reviewing outside data, placing orders, documenting exam and treatment plan, and counseling patient) on [DATE]. Quality VTE Deep Vein Thrombosis/Pulmonary Embolism Present on Admission: No
--- NOTE | 2024-10-21 17:50 | PM.CN.IH.1 ---
History of Present Illness Consult details Date Patient Seen: 10/21/24 Time Patient Seen: 17:50 Chief complaint: urethral false passage Reason for consult: Gilbert catheter management Narrative: 84 y/o M transferred to ER from [facility] in [place] for management of a urethral false passage, pneumonia and acute on chronic systolic heart failure. Briefly, a gilbert catheter placement was attempted at [facility] and was ultimately unsuccessful. A urethral false passage was confirmed on a RUG and due to lack of Urology coverage, he was transferred to for assistance of a gilbert catheter placement. This was completed via a cystoscopy and a [place] tip catheter was placed over the guidewire with immediate drainage of nearly 1L of clear yellow urine. Of note, he does take Tamsulosin 0.4mg daily. Meds Home Medications and Allergies Home Medications Medication Instructions Recorded Confirmed Type sildenafil 50 mg tablet 50 mg PO DAILY PRN sexual activity 08/20/24 10/21/24 Rx #20 tabs tamsulosin 0.4 mg capsule 0.4 mg PO DAILY #90 caps 08/20/24 10/21/24 Rx Allergies Allergy/AdvReac Type Severity Reaction Status Date / Time No Known Drug Allergies Allergy Verified 10/20/24 20:27 Review of Systems Review of Systems Narrative: CONSTITUTIONAL: Denies weight loss, fevers, chills. HEENT: Denies change in vision, hearing. CV: Denies palpations, CP. GI: Denies abdominal pain, nausea, vomiting, diarrhea. MSK: Denies myalgia, joint pain. SKIN: Denies rash, pruritus. NEURO: Denies headache, syncope. PSYCH: Denies recent change in mood, anxiety, depression. Exam Vital Signs (past 8 hours): - 10/21/24 10:38 10/21/24 12:58 10/21/24 15:25 Temperature 98.3 F 97.4 F L 98.2 F Pulse Rate 74 102 H 91 H Respiratory Rate 14 20 Blood Pressure 126/92 H 143/93 H Pulse Oximetry 92 96 94 Oxygen Flow Rate 2 0 Fraction of Inspired Oxygen 28 SaO2/FiO2 Ratio 335 Oxygen Delivery Method Nasal Cannula Oxygen Flow Rate 0 Narrative Exam Narrative: GEN: Alert and oriented X3. No acute distress. Well-nourished. EYES: PERRLA, EOMI. HENT: Moist mucus membranes, no scleral icterus, normal neck ROM. RESP: Unlabored breathing, equal rise and fall of chest bilaterally, no cyanosis appreciated. CV: No peripheral edema, unremarkable heart rate. ABD: Soft, non-tender, non-distended, no palpable masses. : Gilbert secured and draining clear yellow urine. EXT: No edema, clubbing or cyanosis. SKIN: No rashes or lesions. NEURO: No focal neurologic deficits, CN II-XII grossly intact. PSYCH: Cooperative, appropriate mood and affect. Objective Labs 10/21/24 04:17 10/21/24 04:17 Labs: Laboratory Results - last 24 hr 10/20/24 10/20/24 10/21/24 20:42 21:30 04:17 WBC 9.9 8.3 RBC 4.78 4.46 L Hgb 14.1 12.9 L Hct 41.5 38.6 L MCV 86.8 86.6 MCH 29.5 29.0 MCHC 34.0 33.5 RDW 13.5 13.3 Plt Count 354 313 Neut % (Auto) 70.7 70.3 Lymph % (Auto) 13.2 L 13.4 L [place] % (Auto) 11.1 10.8 Eos % (Auto) 4.4 H 4.9 H Baso % (Auto) 0.6 0.6 Neut # (Auto) 7000 5900 Lymph # (Auto) 1300 1100 [place] # (Auto) 1100 H 900 Eos # (Auto) 400 400 Baso # (Auto) 100 100 PT 13.8 H INR 1.2 APTT 32 Sodium 136 L 134 L Potassium 4.2 3.7 Chloride 104 105 Carbon Dioxide 23 23 BUN 15 17 Creatinine 0.87 0.89 Estimated GFR > 60 > 60 BUN/Creatinine Ratio 17.2 19.1 Glucose 109 H 88 Calcium 8.4 8.1 L Magnesium 2.0 Total Bilirubin 0.9 AST 33 ALT 24 Alkaline Phosphatase 67 NT-Pro-B Natriuret Pep 79494 H Total Protein 6.6 Albumin 3.6 Globulin 3.0 Albumin/Globulin Ratio 1.2 Lipase 181 Urine Color Yellow Urine Appearance Clear Urine pH 6.5 Ur Specific [place] <=1.005 Urine Protein Negative Urine Glucose (UA) Negative Urine Ketones Negative Urine Occult Blood 3+ H Urine Nitrate Negative Urine Bilirubin Negative Urine Urobilinogen 0.2 Ur Leukocyte Esterase Negative Urine RBC 5-10/hpf H Urine WBC 0-1/hpf Ur Squamous Epith Cells None seen Ur Transition Epith Cell 0-1/hpf Ur Renal Epithelial Cell 1-5/hpf H Urine Bacteria None seen Ur Culture Indicated? Cult not indicated Vol Urine Centrifuged 10ml (spun) Blood Type A Positive Antibody Screen Negative [facility] Medical History CAD (coronary artery disease) Incomplete bladder emptying Family history of prostate cancer Hypertension Congestive heart failure Arthritis Family history of prostate cancer Urinary calculi Male erectile disorder BPH loc w urin obs/LUTS Surgical History H/O vasectomy H/O prostate biopsy Total knee replacement status H/O transurethral resection of prostate History of hernia surgery Social History marital status: number of children: 3 household members: none Tobacco & Substance Use Smoking Status: Former smoker Assessment & Plan Assessment and plan (1) Urethral false passage: Status: Acute Plan: 84 y/o M currently admitted to for management of his pneumonia and acute on chronic systolic heart failure who was noted to have a urethral false passage during placement of his gilbert catheter at [facility]. His catheter was ultimately placed via cystoscopy over a ureteral guidewire with drainage of nearly 1L of yellow urine. Therefore, discussed the need for continued healing of his false passage and bladder rest. - Recommend that he remain on his Tamsulosin 0.4mg daily - Will return to Urology clinic on 02 Nov 2024 for his voiding trial - This will be coordinate by our clinic schedulers - Please reconsult Urology should any additional questions or concerns arise Time-Based Coding :: [TOTAL MINUTES] spent with patient and on the chart (including review of chart, obtaining history, exam, reviewing outside data, placing orders, documenting exam and treatment plan, and counseling patient) on [DATE]. PROFEE Charge Codes Inpatient or Observation consultation: 17090
[2024-10-21] MEDS: SENNOSIDES 8.6 MG TABLET 17.2 MG PO (20:08)
[2024-10-22] VITALS: BP 121/91; PULSE 89; RESP 18; TEMP 35.9; O2SAT 93
[2024-10-22 04:00] VITALS: BP 147/91; PULSE 93; RESP 18; TEMP 36.3; O2SAT 93
[2024-10-22 04:23] LABS: Add Manual Diff / Slide Review NO; Basophils Absolute Auto 100 /uL (0-100); Basophils Percent Auto 0.7 % (0-2); Eosinophils Absolute Auto 500 /uL (0-450); Eosinophils Percent Auto 6.1 % (2-4); Hematocrit 39.7 % (41-53); Hemoglobin 13.5 g/dL (13.5-17.5); Lymphocytes Absolute Auto 1200 /uL (1100-4500); Lymphocytes Percent Auto 13.8 % (25-40); Mean Corpuscular Hemoglobin 29.3 PG (26-34); Mean Corpuscular Volume 86.1 fL (80-100); Monocytes Absolute Auto 1000 /uL (0-900); Monocytes Percent Auto 11.1 % (3-14); Neutrophils Absolute Auto 6000 /uL (1500-7000); Neutrophils Percent Auto 68.3 % (50-75); Platelet Count 310 X10^3/uL (150-400); Red Blood Cell Count 4.61 X10^6/uL (4.5-5.9); Red Cell Distribution Width 13.5 % (11.6-14.8); White Blood Cell Count 8.8 X10^3/uL (4.5-11.0)
[2024-10-22 04:41] LABS: BUN Creatinine Ratio 22.3 (6-22); Blood Urea Nitrogen 21 mg/dL (9-20); Calcium 8.2 mg/dL (8.4-10.2); Carbon Dioxide 25 mmol/L (22-32); Chloride 105 mmol/L (98-107); Estimated Glomerular Filt Rate > 60 mL/min (>60); Glucose 104 mg/dL (70-99); HEMOLYSIS < 15 (0-50); Potassium 3.9 mmol/L (3.4-5.1); Sodium 136 mmol/L (137-145)
[2024-10-22] MEDS: cefTRIAXone 1,000 MG in SODIUM CHLORIDE 0.9% 100 ML 200 MG IV (05:57)
[2024-10-22] MEDS: ACETAMINOPHEN 325 MG TABLET 650 MG PO ×2 (05:57→13:52)
[2024-10-22 08:00] VITALS: BP 136/99; PULSE 92; RESP 20; TEMP 36.5; O2SAT 96
[2024-10-22] MEDS: lisinopriL 5 MG TABLET PO (08:15)
[2024-10-22] MEDS: FUROSEMIDE 20 MG/2 ML VIAL IV (08:15)
[2024-10-22] MEDS: polyethylene glycoL 3350 17 GM POWD.PACK PO (08:16)
[2024-10-22] MEDS: TAMSULOSIN 0.4 MG CAPSULE PO (08:16)
[2024-10-22 12:00] VITALS: BP 143/48; PULSE 83; RESP 20; TEMP 36.5; O2SAT 92
--- NOTE | 2024-10-22 14:14 | DIET.CONS ---
Dietary Consultation Note Admission Date: 10/20/2024 22:23 Assessment: 84 y M admitted for ruptured urethra, CHF, resp failure. Dietitian consulted for weight gain. Pt reports good appetite outside hospital, 3 meals cooked at home. Some mild difficulties maintaining weight in past year, has added extra snacks and ice cream to help. Recorded PO intakes 75-100%. DFM reviewed for meal adequacy. Ordered double protein sources 1x. Ht: 177.8 cm Wt: 67 kg BMI: 21.2 UBW: 63.503 kg on 08/20/24, pt was diuresing Last BM: 10/22/24 (10/22/24 10:25) MNA: 10 Bradley Score: 20 Diet: 10/21/24 Breakfast Heart Healthy Diet Diet Modifications: Nutrition Percent Meal Consumed 75% 10/22/24 10:25 Percent Meal Consumed 100% 10/21/24 17:20 Percent Meal Consumed 90% 10/21/24 12:58 Percent Meal Consumed 100% 10/21/24 09:21 Labs: RBC 4.61 X10^6/uL (4.5-5.9) 10/22/24 03:53 Hgb 13.5 g/dL (13.5-17.5) 10/22/24 03:53 Hct 39.7 % (41-53) L 10/22/24 03:53 Creatinine 0.94 mg/dL (0.66-1.25) 10/22/24 03:53 NT-Pro-B Natriuret Pep 63877 pg/mL (<450) H 10/21/24 04:17 Nutrition Diagnosis: Increased nutrient needs (protein) related to cardiac needs aeb CHF Interventions: -Has received previous heart healthy nutrition educ, reviewed components briefly -Encouraged continuation with additional snacks pair with protein source for preventing weight loss EER: 75 g protein (1.2 g/kg per CHF) Monitoring/Evaluations: PO intakes Electronically Signed by: Gina Darby 10/22/24 14:14 Clinical Dietitian [address] [address]
--- NOTE | 2024-10-22 14:33 | CM.DANOTE ---
Initial DCP Assessment Visit Note Reviewed EMR and team rounds for status updates. Pt lives independenly in his own home in [place], he has a local dtr as his primary support. Family will likely transport at d/c. No CM d/c needs are identified at this time. Payor: Medicare PCP: Dr. Gato Franz Pt is a 84 year-old M with a hx of CAD and CHF. He was transferred from [facility] for a urethral traumatic rupture that occurred during a catheter insertion at their ED, he was also found to have bilateral pneumonia. Pt required 2LO2 once he arrived to the ED, Urology was able to consult and insert a new catheter, and he was started on IV antibiotics. Plan was made to admit for further tx and monitoring. DCP will continue to follow for any further evolving needs prior to home d/c. Discharge Planning/Care Management CM Discharge Assessment Start: 10/20/24 22:59 Freq: Status: Active Protocol: Document 10/22/24 14:31 DPL (Rec: 10/22/24 14:33 DPL [id number]) Discharge Planning Assessment Assigned Childcare Administrator FELISHA Hartman Advance Directives? No History Provided By Medical Record Has Patient been admitted in last 30 No days? Prior Living Arrangements House Household Members none Type of transporation used prior to Drives own vehicle admit Independent with ADL's Yes Is patient alert and oriented? Yes Comment N/A Caregiver for Another No Comment No anticipated home d/c needs indicated at this time. Barriers to Discharge No Discharge Plan Home Transportation Arrangement Dtr Referrals Initiated None needed Whiteboard Updated in Patient Room with Yes name and ext. # of Childcare Administrator Review Status In Process Please Provide Date Initial DC 10/22/24 Assessment Was Performed
--- NOTE | 2024-10-22 14:54 | PM.DS.1 ---
History of Present Illness History of Present Illness Date Patient Seen: 10/22/24 Time Patient Seen: 14:54 Chief complaint: urethral false passage Narrative: Per overnight provider, 84 y/o with PMH of CAD, s/p CABG, BPH with LUTS, s/p prostatectomy, transferred from hospital in [place] for anterior urethral traumatic rupture and bilateral multifocal pneumonia. Patient initially presented to outside hospital for persistent shortness of breath and generalized malaise with decreased urinary output. He was treated with antibiotic for PNA and diuretic for CHF, transferred to [facility] due to lack of urology coverage. In the ED seen by urologist, had cystoscopic catheter placement. On 2 L of oxygen. Complains on cough, shortness of breath. Initial workup unremarkable. Interval history: Urology placed gilbert, recommends to keep for at least 7 days, do not remove unless directed by urology. TTE today showed newly reduced EF at 15%. Patient has had shortness of breath and a cough now for about a week. Was initially seen at [facility] ER as this started, improved with lasix but then returned discharged on amoxicillin, then returned again for this admission currently. Discharge Providers Provider Date of admission: 10/20/24 22:23 Discharge Date: 10/22/24 Primary care physician: Gato Franz MD Consults: 10/21/24 00:26 Consult to Dietitian, Adult Routine Comment: Reason For Exam: weight gain Discharge provider: Ludwin Navarro DO Summary Hospital Course Discharge Diagnosis: Acute on chronic systolic heart failure, POA Possible bacterial pneumonia with Acute Hypoxemic Respiratory Failure CAD with H/o CABG, h/o MV posterior leaflet repair w/ ring. BPH with LUTS / Hx of TURP / Acute Urinary Retention / Traumatic Urethral Rupture Hospital Course: This is an 84-year-old male who initially presented to an outside emergency room with continued cough and shortness of breath over the past few weeks. During a urinary catheter placement at the outside hospital he unfortunately suffered a urethral injury and was unable to void. He was transferred to [facility] for emergent urology consultation who placed a Gilbert catheter. After arrival he had no continued hematuria, and per Urology he will continue the catheter for at least another week after discharge and follow up with his previous urologist Dr. Platt within 2 weeks. For further evaluation of his shortness of breath, he was initially started on ceftriaxone and azithromycin for possible pneumonia. He was also initially hypoxic requiring 2 L on admission. Once his echocardiogram returned with a new really reduced ejection fraction at 15%, it was deemed more likely that his presenting symptoms were due to acute on chronic systolic heart failure rather than pneumonia so antibiotics were not continued at the time of discharge. With IV diuresis here in the hospital he was able to be weaned off of oxygen with improvement in cough and shortness of breath. He was ambulatory without assistance. Case was discussed with on-call Cardiology here who recommended goal-directed medical therapy and outpatient follow-up with his previous life sciences teacher. He has not seen a life sciences teacher since 2019. He was discharged on 5 mg of lisinopril, 25 mg of metoprolol for goal-directed medical therapy. He was also discharged on furosemide 20 mg daily as he is possibly slightly volume overloaded still but is much improved. Continued adjustments with his primary care provider in the near term are likely needed to all of these medications including lisinopril, metoprolol, and furosemide. He has previous GI bleeds with aspirin that he reported so this was not initiated, and he has severe muscle cramps with statins also reported by the patient which were not initiated after discussion. He will continue on tamsulosin per the direction of his urologist. Time Spent with Patient Time spent: Greater than 30 minutes Exam Vital Signs (past 8 hours): - 10/22/24 07:00 10/22/24 08:00 10/22/24 12:00 Temperature 97.7 F 97.7 F Pulse Rate 92 H 83 Respiratory Rate 20 20 Blood Pressure 136/99 H 143/48 H Pulse Oximetry 96 92 Oxygen Delivery Method Room Air Oxygen Flow Rate 2 0 Fraction of Inspired Oxygen 28 SaO2/FiO2 Ratio 335 Oxygen Delivery Method Room Air Oxygen Flow Rate 0 Narrative Exam Narrative: GEN: Alert and oriented X3. No acute distress. Well-nourished. EYES: PERRLA, EOMI. HENT: Moist mucus membranes, no scleral icterus, normal neck ROM. RESP: Unlabored breathing, equal rise and fall of chest bilaterally, no cyanosis appreciated. CV: No peripheral edema, unremarkable heart rate. ABD: Soft, non-tender, non-distended, no palpable masses. : Gilbert secured and draining clear yellow urine. EXT: No edema, clubbing or cyanosis. SKIN: No rashes or lesions. NEURO: No focal neurologic deficits, CN II-XII grossly intact. PSYCH: Cooperative, appropriate mood and affect. Objective Labs 10/22/24 03:53 10/22/24 03:53 Labs: Laboratory Results - last 24 hr 10/22/24 03:53 WBC 8.8 RBC 4.61 Hgb 13.5 Hct 39.7 L MCV 86.1 MCH 29.3 MCHC 34.0 RDW 13.5 Plt Count 310 Neut % (Auto) 68.3 Lymph % (Auto) 13.8 L Early % (Auto) 11.1 Eos % (Auto) 6.1 H Baso % (Auto) 0.7 Neut # (Auto) 6000 Lymph # (Auto) 1200 Early # (Auto) 1000 H Eos # (Auto) 500 H Baso # (Auto) 100 Sodium 136 L Potassium 3.9 Chloride 105 Carbon Dioxide 25 BUN 21 H Creatinine 0.94 Estimated GFR > 60 BUN/Creatinine Ratio 22.3 H Glucose 104 H Calcium 8.2 L PFSH Medical History CAD (coronary artery disease) Incomplete bladder emptying Family history of prostate cancer Hypertension Congestive heart failure Arthritis Family history of prostate cancer Urinary calculi Male erectile disorder BPH loc w urin obs/LUTS Surgical History H/O vasectomy H/O prostate biopsy Total knee replacement status H/O transurethral resection of prostate History of hernia surgery Social History marital status: number of children: 3 household members: none Smoking Status: Former smoker Discharge Plan Discharge Plan Patient Disposition: Home Provider Discharge Comment: You were admitted to the hospital with a traumatic urethral injury and heart failure. Please keep gilbert catheter in place until urology appointment. For your heart you are being put on medications to help improve it's function [facility]. Please follow up with primary care for new cardiology referral. You may need to adjust medications moving forward as well. Discharge orders & Medications Prescriptions: New furosemide 20 mg tablet 20 mg PO DAILY 30 Days Qty: 30 0RF metoprolol succinate 25 mg tablet extended release 24 hr 25 mg PO DAILY 30 Days Qty: 30 0RF lisinopril 5 mg tablet 5 mg PO DAILY 30 Days Qty: 30 0RF nitroglycerin 0.4 mg tablet, sublingual 0.4 mg sublingual Q5-15M PRN (Reason: chest pain) Qty: 25 0RF Rx Instructions: do not exceed 3 doses per episode Continued tamsulosin 0.4 mg capsule 0.4 mg PO DAILY Qty: 90 3RF Discontinued sildenafil 50 mg tablet 50 mg PO DAILY PRN (Reason: sexual activity) Qty: 20 3RF Rx Instructions: administer 30 minutes to 4 hours before activity. take 1 to 2 tabs as needed. Follow up/Referrals: Gato Franz MD [Primary Care Provider] - 1 Week Discharge Health Status Multidrug resistant organism: No MDRO Diet/Activity/Treatments Diet: Diet as Tolerated, Regular and Low-sodium Activity: As tolerated no restrictions Catheter: 2-way Gilbert Visit Report/Discharge Packet Stand Alone Forms: Patient Portal/API, Stroke Signs & Symptoms Discharge Data Primary Care Provider: Gato Franz Quality VTE Deep Vein Thrombosis/Pulmonary Embolism Present on Admission: No
--- NOTE | 2024-10-22 16:02 | PC.NURSE ---
D/c instructions reviewed with pt and family at bedside. Educated pt on how to clean gilbert catheter, and how to empty the catheter. Pt has leg bag. IV and tele removed. Pt exited via w/c with HEEL [employer]OM OPERATOR and spouse to private vehicle.
== END 2024-10-22 16:06 | disposition home or self-care (01) | DRG 698 ==
LOC: ED 22:23 → AC 22:25
PROVIDERS: Admitting Provider Internal Medicine; Emergency Provider Student in an Organized Health Care Education/Training Program; PCP Family Medicine; Referring Provider Student in an Organized Health Care Education/Training Program; Visit Provider Internal Medicine
DX: S37.39XA Other injury of urethra, initial encounter (principal); I50.23 Acute on chronic systolic (congestive) heart failure; J96.01 Acute respiratory failure with hypoxia; J15.9 Unspecified bacterial pneumonia; I25.810 Atherosclerosis of coronary artery bypass graft(s) without angina pectoris; N40.1 Benign prostatic hyperplasia with lower urinary tract symptoms; I11.0 Hypertensive heart disease with heart failure; R33.8 Other retention of urine; X58.XXXA Exposure to other specified factors, initial encounter; Y92.239 Unspecified place in hospital as the place of occurrence of the external cause; Z98.890 Other specified postprocedural states; Z95.1 Presence of aortocoronary bypass graft; Z87.891 Personal history of nicotine dependence
CPT/HCPCS: 36415; 71045; 80048; 80053; 81003; 81015; 83690; 83735; 83880; 85025; 85610; 85730; 86850; 86900; 86901; 93005; 93010; 94760; 94762; 99284; 99285; C8929; J0696; J1938; Q9957

== ENCOUNTER → 2024-11-02 15:34 | Outpatient (CLI) | payer MEDICARE, OTHER, SELFPAY ==
[2024-10-21 00:15] VITALS: BMI 20.7
== END ==
PROVIDERS: PCP Student in an Organized Health Care Education/Training Program; Visit Provider Urology
DX: N40.1 Benign prostatic hyperplasia with lower urinary tract symptoms (principal)
CPT/HCPCS: 87086